=== PATIENT | male | born 1960 | race Caucasian/White ===

== ENCOUNTER 2016-11-04 11:15 | Emergency (ER) | payer OTHER ==
[~2016-11-04] VITALS: Ht 180.3 cm; Wt 86.2 kg
[2016-11-04 11:24] VITALS: BP 164/114
== END 2016-11-04 11:57 | disposition home or self-care (01) ==
LOC: ER 11:17
DX: R20.2 Paresthesia of skin (principal); T46.7X5A Adverse effect of peripheral vasodilators, initial encounter; M54.5 Low back pain; Y92.89 Other specified places as the place of occurrence of the external cause
CPT/HCPCS: 99281; A4606; Z7610; Z7502

== ENCOUNTER 2017-07-05 13:17 | Emergency (ER) | payer OTHER ==
[~2017-07-05] VITALS: Ht 180.3 cm; Wt 86.2 kg
[2017-07-05 13:21] VITALS: BP 147/86
== END 2017-07-05 14:32 | disposition home or self-care (01) ==
LOC: ER 13:18
DX: J06.9 Acute upper respiratory infection, unspecified (principal)
CPT/HCPCS: A4606; Z7610